=== PATIENT | male | born 1985 | race American Indian/Alaskan Native ===

== ENCOUNTER 2017-03-21 17:10 | Emergency (ER) | payer OTHER ==
[2017-03-21 18:08] VITALS: BP 155/95
[2017-03-21 18:57] LABS: Anion Gap 22 mmol/L; BUN/Creatinine Ratio 18; Blood Urea Nitrogen 16 mg/dL (9-20); Calcium 10.1 mg/dL (8.4-10.2); Carbon Dioxide 25 mmol/L (22-30); Chloride 92.5 mmol/L (98-107); Glucose 98 mg/dL (75-100); Potassium 5.1 mmol/L (3.6-5.0); Sodium 134 mmol/L (137-145)
[2017-03-21 19:14] LABS: Basophils % (Auto) 0.8 % (0.0-1.8); Eosinophils % (Auto) 0.8 % (0.0-4.3); Hematocrit 50.5 % (35.5-45.6); Hemoglobin 17.4 gm/dl (11.8-15.2); Mean Corpuscular HGB Conc 34 % (32-34); Mean Corpuscular Hemoglobin 31 pg (28-32); Mean Corpuscular Volume 89 fl (84-94); Red Blood Count 5.65 M/mm3 (3.65-5.03); Red Cell Distribution Width 13.4 % (13.2-15.2); White Blood Count 6.7 K/mm3 (4.5-11.0)
[2017-03-21 19:17] LABS: Platelet Count 215 K/mm3 (140-440)
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
--- NOTE | 2017-03-22 08:22 | XRay Report ---
ROUTINE CHEST, TWO VIEWS: Chest pain. PA and lateral views demonstrate the heart and mediastinal contour to be of normal size and shape. The lungs are clear and fully expanded and the soft tissues and bony structures are normal. IMPRESSION: Normal study.
== END 2017-03-21 23:11 | disposition home or self-care (01) ==
LOC: ED 17:10
DX: R94.31 Abnormal electrocardiogram [ECG] [EKG] (principal); I10 Essential (primary) hypertension
CPT/HCPCS: 36415; 71020; 80048; 84484; 85025; 93005; 93010

== ENCOUNTER 2018-02-05 18:55 | Emergency (ER) | payer OTHER ==
[2018-02-05 19:32] VITALS: BP 122/83
[2018-02-05] MEDS ORDERED: NORCO 5/325 PO ONE (21:37)
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
--- NOTE | 2018-02-05 23:08 | Cat Scan Report ---
FINAL REPORT PROCEDURE: CT LOWER EXTREMITY RT WO CON TECHNIQUE: Computerized axial tomography of the RIGHT knee was performed without contrast. HISTORY: pain swelling non weight bearing COMPARISON: No prior studies are available for comparison. FINDINGS: Bony structures including marrow spaces: Normal. Neurovascular structures: Normal. Soft tissues: Normal. Joint space: There is a mild joint effusion. IMPRESSION: No evidence of an acute fracture or dislocation. A mild joint effusion is identified.
--- NOTE | 2018-02-05 23:09 | XRay Report ---
FINAL REPORT PROCEDURE: XR KNEE 3V RT TECHNIQUE: RIGHT knee radiographs, AP, lateral and oblique views. CPT 41417 HISTORY: pain swelling COMPARISON: No prior studies are available for comparison. FINDINGS: Fracture (s) and/or Dislocation(s): None . Alignment: Normal . Joint space(s): The joint spaces are maintained. There is a mild joint effusion. Soft tissues: Normal . Bone mineralization: Normal . Foreign bodies: None . IMPRESSION: There is no evidence of an acute fracture. Mild joint effusion.
== END 2018-02-06 00:10 ==
LOC: ED 18:55
DX: S86.911A Strain of unspecified muscle(s) and tendon(s) at lower leg level, right leg, initial encounter (principal); I10 Essential (primary) hypertension; Z87.891 Personal history of nicotine dependence; W18.39XA Other fall on same level, initial encounter; Y93.67 Activity, basketball; Y92.89 Other specified places as the place of occurrence of the external cause; Y99.8 Other external cause status

== ENCOUNTER 2018-09-02 13:59 | Outpatient (CLI) | payer OTHER ==
--- NOTE | 2018-09-02 20:28 | Vascular Lab Report ---
PROCEDURE: US RIGHT LOWER EXTREMITY VENOUS DUPLEX DOPPLER TECHNIQUE: Duplex Doppler ultrasound of the RIGHT common and superficial femoral, popliteal, posteri or tibial, and proximal deep femoral veins was attempted. Higgins scale imaging with and without becca jaylen, spectral waveform analysis with and without augmentation, and color flow Doppler were employed. CPT 54269-MR HISTORY: Pain in the right lower extremity COMPARISONS: None . FINDINGS: Deep Venous Thrombus: None . Soft tissue abnormality: None . Other: None . IMPRESSION: No evidence of deep venous thrombosis . This document is electronically signed by Tyree Patel MD., September 02 2018 08:26:50 PM ET
== END 2018-09-02 14:00 | disposition home or self-care (01) ==
LOC: VAS 13:59
PROVIDERS: ATTEND Emergency Medicine Emergency Medical Services
DX: R22.43 Localized swelling, mass and lump, lower limb, bilateral (principal); I10 Essential (primary) hypertension; F17.210 Nicotine dependence, cigarettes, uncomplicated